=== PATIENT | male | born 1980 | race Caucasian/White ===

== ENCOUNTER 2016-10-23 20:39 | Emergency (ER) | payer MEDICAID, OTHER ==
[~2016-10-23] VITALS: Ht 167.6 cm; Wt 84.0 kg
[2016-10-23 20:41] VITALS: Ht 167.6 cm; Wt 84.0 kg
[2016-10-23] MEDS ORDERED: KETOROLAC 60 MG INJ IM STA (21:15)
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
--- NOTE | 2016-10-23 22:26 | RADRPT ---
PROCEDURE: X-ray left foot CLINICAL INDICATION: Pain in the left foot TECHNIQUE: 3 views left foot COMPARISON: None FINDINGS: No acute fracture dislocation. Plantar and posterior dorsal calcaneal enthesophytes. Soft tissues unremarkable. IMPRESSION: No acute fracture. RPTAT: [facility] Physician Andrea Date Time Electronically viewed and signed by Physician Andrea on 10/23/2016 22:25 RS/
--- NOTE | 2016-10-23 22:27 | RADRPT ---
PROCEDURE: X-ray left ankle CLINICAL INDICATION: Left ankle pain TECHNIQUE: 3 views left ankle COMPARISON: None FINDINGS: No acute fracture or dislocation. Plantar and posterior dorsal calcaneal enthesophytes. Soft tissu es unremarkable. IMPRESSION: No acute fracture. RPTAT: [facility] Physician Andrea Date Time Electronically viewed and signed by Saul Garcia Physician on 10/23/2016 22:26 RS/
[2016-10-23] MEDS ORDERED: TRAM50TA2 PO (22:45)
[2016-10-23] MEDS ORDERED: IBUP-1542 PO (22:45)
== END 2016-10-23 23:16 | disposition home or self-care (01) ==
LOC: FTE 20:39
DX: M25.572 Pain in left ankle and joints of left foot (principal); F17.210 Nicotine dependence, cigarettes, uncomplicated
CPT/HCPCS: 73610; 73630; J1885; 96372

== ENCOUNTER 2017-01-17 23:01 | Inpatient (IN) | payer MEDICAID ==
[~2017-01-17] VITALS: Ht 170.2 cm; Wt 81.2 kg
[~2017-01-17 23:01] MED LIST: IBUP-1542 PO; TRAM50TA2 PO
[2017-01-18] VITALS (15 sets, daily range): BP systolic 106–132; BP diastolic 64–98; PULSE 62–103; RESP 12–27; TEMP 98.5; Ht 170.2 cm; Wt 81.2 kg
--- NOTE | 2017-01-18 01:10 | ERD ---
ER Documentation Chief Complaint Date/Time DATE: 01/18/17 TIME: 01:07 Chief Complaint head and nose lac s/p fall walking down stairs HPI 36-year-old male presents here in emergency department for complaints of left forehead laceration and right nasal fold laceration after falling off stairs today. Patient did not lose consciousness after the injury. Patient did not have any vomiting. Also is complaining of the left shoulder pain throbbing pain 8/10 scale, is worse upon movement, landed on it during the injury. Patient is complaining of pain on the laceration wounds, burning pain 4/10 scale, is worse upon touching the area. Patient's laceration wound bleeding is controlled at this time. Patient did not take any medications for pain. Patient did not have any changes in balance or memory. Patient denies any dizziness. ROS All systems reviewed and are negative except as per history of present illness. Medications Home Meds Active Scripts Tramadol HCl (Tramadol HCl) 50 Mg Tablet, 50 MG PO Q6 Y for SEVERE PAIN LEVEL 7- 10, #20 TAB Prov:HUONG MARINO COOK FROZEN DESSERT 10/23/16 Ibuprofen* (Motrin*) 600 Mg Tab, 600 MG PO Q6H Y for PAIN AND OR ELEVATED TEMP, #30 TAB Prov:HUONG MARINO COOK FROZEN DESSERT 10/23/16 Reported Medications [none] Unknown Strength No Conflict Check 10/23/16 Allergies Allergies: Coded Allergies: No Known Allergy (Unverified , 10/23/16) PMhx/Soc Medical and Surgical Hx: pt denies Medical Hx, pt denies Surgical Hx History of Surgery: No Anesthesia Reaction: No Hx Neurological Disorder: No Hx Respiratory Disorders: No Hx Cardiac Disorders: No Hx Psychiatric Problems: No Hx Miscellaneous Medical Probl: No (DENIES MED AND SURG HX.) Hx Alcohol Use: No Hx Substance Use: Yes (MARIJUANA) Hx Tobacco Use: No Smoking Status: Never smoker FmHx Family History: No coronary disease, No diabetes, No other Physical Exam Vitals Vital Signs Date Time Temp Pulse Resp B/P Pulse Ox O2 Delivery O2 Flow Rate FiO2 01/17/17 23:20 98.5 100 18 129/85 97 Physical Exam GENERAL: The patient is well developed and appropriate for usual state of health, in no apparent distress. CHEST: Clear to auscultation bilaterally. There are no rales, wheezes or rhonchi. HEART: Regular rate and rhythm. No murmurs, clicks, rubs or gallops. No S3 or S4. ABDOMEN: Soft, nontender and nondistended. Good bowel sounds. No rebound or guarding. No gross peritonitis. No gross organomegaly or masses. No Soria sign or McBurney point tenderness. BACK: No midline or flank tenderness. EXTREMITIES: Able to do full range of motion of left shoulder without any or restriction, but with pain. No deformity noted, no crepitus noted. Equal pulses bilaterally. Full range of motion of other joints of the body. Grossly neurovascularly intact. NEURO: Alert and oriented. Cranial nerves 2-12 intact. Motor strength in all 4 extremities with 5/5 strength. Sensation grossly intact. Normal speech and gait. Negative Romberg sign. Negative pronator drift. SKIN: Noted 2.5 cm superficial laceration wound in the left forehead, no galea involvement. Nose laceration in the right nasolabial fold, 1 cm, bleeding is controlled at this time. There is no apparent rash or petechia. The skin is warm and dry. HEMATOLOGIC AND LYMPHATIC: There is no evidence of excessive bruising or lymphedema. No gross cervical, axillary, or inguinal lymphadenopathy. Results 24 hrs Current Medications Medications (Trade) Dose Ordered Sig/Deshawn Route PRN Reason Start Time Stop Time Status Last Admin Dose Admin Lidocaine (Xylocaine 2% (Mdv) 20 ml) 2 ml ONCE ONCE SC 01/18/17 03:00 01/18/17 03:01 DC 01/18/17 02:46 AMENDMENT: 01/18/2017 2:01:38 AM Agapito Garcia MD Addendum: FINDINGS: Depressed fracture in the left frontal region measuring about 5 x 4 mm at the outer table of the calvarium, with about 6 mm depression of the internal fragments. There is no evident hemorrhage in this region, although MRI examination may be more sensitive and specific for detecting subtle hemorrhage given mild streak artifact associated with bone fragments. IMPRESSION: 1. Fracture of the left frontal calvarium with depression of bone fragments measuring about 6 mm. 2. No evident hemorrhage in this region. 3. MRI examination may be of further use. PROCEDURE: CT head, without contrast. CLINICAL INDICATION: Facial and head injury status post fall. TECHNIQUE: Noncontrast CT examination of the head, with axial, sagittal and coronal reformatted images. Automated dose exposure control was employed. CTDI: 45.01 and DLP: 720.23 COMPARISON: None. FINDINGS: No acute hemorrhage. Subarachnoid spaces are substantially preserved and symmetric. Ventricles are unremarkable. No mass effect. Matos-white matter distinction is preserved without evident decreased attenuation to suggest acute or recent infarct. Sinuses and osseous structures are unremarkable. IMPRESSION: No acute process in the head. RPTAT: [facility] Physician Andrea Date Time Electronically viewed and signed by Physician Andrea on 01/18/2017 02:01 RS/ CC: HUONG MARINO NP PROCEDURE: CT facial bones CLINICAL INDICATION: Fall with head and facial injuries. TECHNIQUE: A CT of the facial bones was performed utilizing high-resolution axial images. Sagittal, coronal, and multiplanar reformatted images were made. Additionally, 3-D reformatted images were made. The CTDIvol is 29.48 mGy and the DLP is 557.23 mGy-cm. COMPARISON: None. FINDINGS: Depressed fracture in the left frontal region measuring about 5 x 4 mm at the outer table of the calvarium, with about 6 mm depression of the internal fragments. The orbits, as visualized, appear intact. The overlying soft tissues are grossly unremarkable. The visualized paranasal sinuses are clear. IMPRESSION: Fracture of the left frontal calvarium with depression of bone fragments measuring about 6 mm. RPTAT: [facility] Physician Andrea Date Time Electronically viewed and signed by Physician Andrea on 01/18/2017 02:00 RS/ CC: HUONG MARINO NP PROCEDURE: X-ray left shoulder CLINICAL INDICATION: Left shoulder pain status post injury. TECHNIQUE: 3 views left shoulder COMPARISON: None FINDINGS: No acute fracture or dislocation. Degenerative changes at the acromioclavicular joint with subchondral cystic changes at the distal articular clavicle. Soft tissues unremarkable. IMPRESSION: No acute fracture. RPTAT: [facility] Physician Andrea Date Time Electronically viewed and signed by Physician Andrea on 01/18/2017 01:22 RS/ CC: HUONG MARINO COOK FROZEN DESSERT Procedures/MDM Procedure Note: After obtaining informed consent, the wound was irrigated with 250 ml of normal saline and cleaned with diluted betadine. Using aseptic technique, 3 ml of 1% lidocaine was injected on the subcutaneous tissue of the laceration wound for anesthetic. After the anesthetic, the wound in the right naris area was approximated using 5 interrupted sutures of 6-0 Ethilon. After the procedure, the wound was well approximated. Patient tolerated procedure well. Procedure Note: After obtaining informed consent, the forehead laceration wound was irrigated with 250 ml of normal saline and cleaned with diluted betadine. Using aseptic technique, the wound was approximated using a dermabond and Steri-Strips. After the procedure, the wound was well approximated. Patient tolerated procedure well. Medical Decision Making: Patient's pain is most likely consistent with a laceration was affected in his face, patient also has a skull fracture with frontal lobe contusion, with this, patient is to be admitted to the hospital. No hemorrhage noted. Patient also has left shoulder pain, consistent with a left shoulder contusion, no dislocation or fracture noted. There is no suspicion for neurovascular compromise. Patient has intact sensation and circulation of the affected extremity and distal extremity. There is low suspicion for septic arthritis. Patient does not have any fever. Radiology exams of the shoulder area does not show any fracture or dislocation. I discussed this case with my attending physician, Dr. Mar, will faciliate patient's admission to the hospital for further evaluation and management. Patient is stable at this time. Departure Diagnosis: Primary Impression: Depressed skull fracture Encounter type: initial encounter Fracture type: closed Qualified Code: S02.91XA - Depressed skull fracture, closed, initial encounter Additional Impressions: Facial laceration Encounter type: initial encounter Qualified Code: S01.81XA - Facial laceration, initial encounter Shoulder contusion Encounter type: initial encounter Laterality: left Qualified Code: S40.012A - Contusion of left shoulder, initial encounter Condition: HUONG Gregory NP Jan 18, 2017 01:10
--- NOTE | 2017-01-18 01:22 | RADRPT ---
PROCEDURE: X-ray left shoulder CLINICAL INDICATION: Left shoulder pain status post injury. TECHNIQUE: 3 views left shoulder COMPARISON: None FINDINGS: No acute fracture or dislocation. Degenerative changes at the acromioclavicular joint with subchondr al cystic changes at the distal articular clavicle. Soft tissues unremarkable. IMPRESSION: No acute fracture. RPTAT: [facility] Physician Andrea Date Time Electronically viewed and signed by Physician Andrea on 01/18/2017 01:22 RS/
--- NOTE | 2017-01-18 01:57 | RADRPT ---
AMENDMENT: 01/18/2017 2:01:38 AM Agapito Garcia MD Addendum: FINDINGS: Depressed fracture in the left frontal region measuring about 5 x 4 mm at the outer table of the maritza varium, with about 6 mm depression of the internal fragments. There is no evident hemorrhage in this region, although MRI examination may be more sensitive and sp ecific for detecting subtle hemorrhage given mild streak artifact associated with bone fragments. IMPRESSION: 1. Fracture of the left frontal calvarium with depression of bone fragments measuring about 6 mm. 2. No evident hemorrhage in this region. 3. MRI examination may be of further use. PROCEDURE: CT head, without contrast. CLINICAL INDICATION: Facial and head injury status post fall. TECHNIQUE: Noncontrast CT examination of the head, with axial, sagittal and coronal reformatted im ages. Automated dose exposure control was employed. CTDI: 45.01 and DLP: 720.23 COMPARISON: None. FINDINGS: No acute hemorrhage. Subarachnoid spaces are substantially preserved and symmetric. Ventricles ar e unremarkable. No mass effect. Matos-white matter distinction is preserved without evident decreased attenuation t o suggest acute or recent infarct. Sinuses and osseous structures are unremarkable. IMPRESSION: No acute process in the head. RPTAT: UU Physician Andrea Date Time Electronically viewed and signed by Physician Andrea on 01/18/2017 02:01 MARTI/
--- NOTE | 2017-01-18 02:00 | RADRPT ---
AMENDMENT: 01/18/2017 2:08:58 AM Agapito Garcia MD ADDENDUM: Region of fracture of the inner table of the skull with about 6 mm depression measures about 14 mm i n transverse dimension. Depressed fracture of the skull with fracture at the inner table of the skull and 6 mm depression of posterior fragments and associated details were discussed with the patient's nurse practitioner Gregory mendoza of the [facility] emergency department at the conclusion of this addendum on at 0205 hours by the undersigned interpreting radiologist. [facility] Radiology Report Patient Name: HERON BRYANT Report Date: 18-Jan-2017 02:00.00 Accession No.: [id number] Patient Date: 1980 Report Status: S Referring Physician: KIMBERLY BORJA Reason For Study: facial and head injury s/p fall off stairs [place] [address] Radiology Main Line: [phone] DIAGNOSTIC IMAGING REPORT Patient: ANNETTE SHELBY : 1980 Age: 36 Sex: M MR #: [id number] DOS: 01/18/17 0024 Ordering MD: HUONG MARINO NP Location: [facility] Room/Bed: PROCEDURE: CT facial bones CLINICAL INDICATION: Fall with head and facial injuries. TECHNIQUE: A CT of the facial bones was performed utilizing high-resolution axial images. Sagittal, coronal, and multiplanar reformatted images were made. Additionally, 3-D reformatted images were made. The CTDIvol is 29.48 mGy and the DLP is 557.23 mGy-cm. COMPARISON: None. FINDINGS: Depressed fracture in the left frontal region measuring about 5 x 4 mm at the outer table of the calvarium, with about 6 mm depression of the internal fragments. The orbits, as visualized, appear intact. The overlying soft tissues are grossly unremarkable. The visualized paranasal sinuses are clear. IMPRESSION: Fracture of the left frontal calvarium with depression of bone fragments measuring about 6 mm. RPTAT: UU R Radha, Physician Date Time Electronically viewed and signed by Saul Garcia, Physician on 01/18/2017 02:00 RS/ CC: HUONG MARINO. P[employer] Saul Garcia, Physician Date Time Electronically viewed and signed by Saul Garcia Physician on 01/18/2017 02:08 RS/
[2017-01-18] MEDS ORDERED: LIDOCAINE 2% (MDV) 20 ML INJ SC ONE (03:00)
--- NOTE | 2017-01-18 05:06 | RADRPT ---
PROCEDURE: MR Brain without contrast. CLINICAL INDICATION: Head trauma with left frontal skull fracture. Assess for intracranial hemorr manasa. TECHNIQUE: Sagittal and axial T1 weighted, axial T2 weighted, axial and coronal GRE, axial diffusi on weighted with ADC mapping, and axial FLAIR imaging without contrast. COMPARISON: CT from the same day FINDINGS: Small left frontal scalp hematoma is again seen. The depressed left frontal calvarial fracture is n oted. A small amount of associated extra-axial blood is seen but no subjacent cortical contusion is appreciated. There is slight effacement of the left frontal lobe cortex. The overall area of bony fragment and associated blood measures 2 cm transverse by 0.5 cm AP. No other area of extra-axial blood is appreciated. No area of intraparenchymal hemorrhage is seen. No midline shift is seen. T he globes appear symmetric and intact. The ventricles are normal in size and configuration. Grossl y patent intracranial flow voids. The visualized paranasal sinuses are grossly clear. IMPRESSION: Left frontal scalp hematoma with depressed left frontal calvarial fragment and minimal associated ex tra-axial blood. Mild effacement of the subjacent left frontal lobe cortex without evidence of danyell ical contusion or white matter edema. Otherwise unremarkable study. RPTAT: [facility]BE Physician Farideh Date Time Electronically viewed and signed by Toshia Walters Physician on 01/18/2017 05:05 SWEETIE/
--- NOTE | 2017-01-18 05:42 | EN ---
Date/Time of Note Date/Time of Note DATE: 01/18/17 TIME: 05:[address] Wilson neurosurgery made aware JUJU DOWELL Jan 18, 2017 05:41
--- NOTE | 2017-01-18 06:07 | RADRPT ---
PROCEDURE: CHEST - 1 VIEW CLINICAL INDICATION: 36-year-old male with chest/abdominal pain. TECHNIQUE: A single frontal AP portable view of the chest was performed. The images were reviewed on a PACS workstation. COMPARISON: None. FINDINGS: The cardiomediastinal silhouette has a normal appearance. There is a shallow inspiration with elevat ion right hemidiaphragm. There is mild right basilar subsegmental atelectasis. There is no evidence for an infiltrate. There is no evidence for congestive heart failure. There is no evidence for pne umothorax. The osseous structures are intact. IMPRESSION: Shallow inspiration with elevated right hemidiaphragm and mild right basilar subsegmental atelectasi s. .Jama Harry MD, MD Date Time Electronically viewed and signed by .Jama Harry MD, on 01/18/2017 06:07 .[place]/
[2017-01-18 06:09] LABS: ADD SCAN DIFF NO; BASOPHILS % 0.2 % (0.0-2.0); EOSINOPHILS # 0.1 10^3/ul (0.0-0.5); EOSINOPHILS % 1.6 % (0.0-7.0); HEMATOCRIT 39.1 % (42.0-52.0); HEMOGLOBIN 12.7 g/dl (14.0-18.0); LYMPHOCYTES # 1.6 10^3/ul (0.8-2.9); LYMPHOCYTES % 24.6 % (15.0-51.0); MEAN CORPUSCULAR HEMOGLOBIN 27.7 pg (29.0-33.0); MEAN CORPUSCULAR HGB CONC 32.5 g/dl (32.0-37.0); MEAN CORPUSCULAR VOLUME 85.4 fl (82.0-101.0); MEAN PLATELET VOLUME 10.3 fl (7.4-10.4); MONOCYTE # 0.5 10^3/ul (0.3-0.9); MONOCYTES % 8.4 % (0.0-11.0); NEUTROPHIL # 4.1 10^3/ul (1.6-7.5); NEUTROPHILS % 64.9 % (39.0-77.0); PLATELET COUNT 238 10^3/UL (140-415); RED BLOOD COUNT 4.58 10^6/ul (4.70-6.10); RED CELL DISTRIBUTION WIDTH 13.7 % (11.5-14.5); WHITE BLOOD COUNT 6.3 10^3/ul (4.8-10.8)
--- NOTE | 2017-01-18 06:12 | QN ---
Documentation Comment Traumatic left frontal depressed skull fracture; fracture is minimally depressed and not associated with any subjacent contusion. Skin is intact over the fracture fragment. There is no indication for neurosurgical intervention to raise this fracture fragment as it is not comminuted and the wound is not an open fracture. The patient should however be observed in ICU for repeat CT in 24 hours to rule out a delayed contusion or hemorrhage. MATTHEW HINSON MD Jan 18, 2017 06:12
[2017-01-18] MEDS ORDERED: HYDROmorphONE 1 MG/ML SYG IV STA (06:52)
[2017-01-18] MEDS ORDERED: ONDANSETRON 4 MG INJ IV STA (06:52)
[2017-01-18 07:15] LABS: INR 1.07; PROTIME 13.9 Sec (12.2-14.2); PT RATIO 1.1
[2017-01-18 07:16] LABS: PARTIAL THROMBOPLASTIN TIME 30.8 Sec (25.0-35.0)
[2017-01-18 07:17] LABS: ALBUMIN 4.5 g/dl (3.3-4.9); ALBUMIN/GLOBULIN RATIO 1.21; BILIRUBIN,INDIRECT 0.8 mg/dl (0-1.1); BILIRUBIN,TOTAL 0.8 mg/dl (0.2-1.3); CALCIUM 9.4 mg/dl (8.4-10.2); CREATININE 0.8 mg/dl (0.61-1.24); POTASSIUM 3.2 mmol/L (3.5-5.1); TOTAL PROTEIN 8.2 g/dl (6.1-8.1)
[2017-01-18] MEDS ORDERED: ONDANSETRON 4 MG INJ IV PRN (07:30)
[2017-01-18] MEDS: SOD CHLORIDE 0.9% 1,000 ML IV SCH (10:20)
--- NOTE | 2017-01-18 14:33 | HP ---
Date/Time of Note Date/Time of Note DATE: 01/18/17 TIME: 14:26 Assessment/Plan VTE Prophylaxis VTE Prophylaxis Intervention: SCD's Lines/Catheters IV [facility]ter Type (from [facility] Peripheral IV Urinary Cath still in place: No Assessment/Plan Assessment/Plan 36 yo M s/p accidental fall down the stairs with 1. Mild depressed skull fracture Per Neurosurgery: Traumatic left frontal depressed skull fracture; fracture is minimally depressed and not associated with any subjacent contusion. Skin is intact over the fracture fragment. There is no indication for neurosurgical intervention to raise this fracture fragment as it is not comminuted and the wound is not an open fracture. The patient should however be observed in ICU for repeat CT in 24 hours to rule out a delayed contusion or hemorrhage. HPI/ROS Admit Date/Time Admit Date/Time Jan 18, 2017 at 07:23 Hx of Present Illness 36-year-old male presents here in emergency department for complaints of left forehead laceration and right nasal fold laceration after falling off stairs today. Patient did not lose consciousness after the injury. Patient did not have any vomiting. Also is complaining of the left shoulder pain throbbing pain 8/10 scale, is worse upon movement, landed on it during the injury. Patient is complaining of pain on the laceration wounds, burning pain 4/10 scale, is worse upon touching the area. Patient's laceration wound bleeding is controlled at this time. Patient did not take any medications for pain. Patient did not have any changes in balance or memory. Patient denies any dizziness. ROS 12 point review if systems was done and pertinent findings are as noted. PMH/Family/Social Social History Smoking Status: Heavy tobacco smoker Exam/Review of Systems Vital Signs Vitals Vital Signs Date Time Temp Pulse Resp B/P Pulse Ox O2 Delivery O2 Flow Rate FiO2 01/18/17 14:00 87 20 119/83 100 Room Air 01/18/17 11:30 98.1 Exam Constitutional: alert, oriented, No distress Head: other (Noted 2.5 cm superficial laceration wound in the left forehead,) Eyes: EOMI, PERRL, nl conjunctiva ENMT: mucosa pink and moist Neck: supple Respiratory: clear to auscultation, normal air movement Cardiovascular: nl pulses, regular rate and rhythm Gastrointestinal: bowel sounds, non-tender, soft Extremities: No edema Neurological: nl mental status, nl speech, nl strength, No confused, No focal weakness Labs Result Diagram: 01/18/17 0541 01/18/17 0636 Medications Medications Current Medications Sodium Chloride (NS) 1,000 ml @ 70 mls/hr [id number] IV Last administered on 01/18t 10:20; Admin Dose 70 MLS/HR; Start 01/18/17 at 11:00 Ondansetron HCl (Zofran Inj) 4 mg Q6H PRN IV NAUSEA AND/OR VOMITING; Start 05/27 at 07:30 Acetaminophen (Tylenol Liquid) 650 mg Q6H PRN PO PAIN LEVEL 1-3 OR FEVER; Start 01/18/17 at 07:30 Pantoprazole (Protonix Iv) 40 mg DAILY@06 IV ; Start 01/19/17 at 06:00 Procedures Procedures Laboratory Tests Test 01/18/17 05:41 01/18/17 06:36 White Blood Count 6.310^3/ul Red Blood Count 4.5810^6/ul Hemoglobin 12.7g/dl Hematocrit 39.1% Mean Corpuscular Volume 85.4fl Mean Corpuscular Hemoglobin 27.7pg Mean Corpuscular Hemoglobin Concent 32.5g/dl Red Cell Distribution Width 13.7% Platelet Count 22881^3/UL Mean Platelet Volume 10.3fl Neutrophils % 64.9% Lymphocytes % 24.6% Monocytes % 8.4% Eosinophils % 1.6% Basophils % 0.2% Nucleated Red Blood Cells % 0.0/100WBC Neutrophils # 4.110^3/ul Lymphocytes # 1.610^3/ul Monocytes # 0.510^3/ul Eosinophils # 0.110^3/ul Basophils # 0.010^3/ul Nucleated Red Blood Cells # 0.010^3/ul Prothrombin Time 13.9Sec Prothrombin Time Ratio 1.1 INR International Normalized Ratio 1.07 Activated Partial Thromboplast Time 30.8Sec Sodium Level 138mmol/L Potassium Level 3.2mmol/L Chloride Level 102mmol/L Carbon Dioxide Level 31mmol/L Anion Gap 8 Blood Urea Nitrogen 13mg/dl Creatinine 0.80mg/dl Glucose Level 89mg/dl Calcium Level 9.4mg/dl Total Bilirubin 0.8mg/dl Direct Bilirubin 0.00mg/dl Indirect Bilirubin 0.8mg/dl Aspartate Amino Transf (AST/SGOT) 26IU/L Alanine Aminotransferase (ALT/SGPT) 38IU/L Alkaline Phosphatase 95IU/L Total Protein 8.2g/dl Albumin 4.5g/dl Globulin 3.70g/dl Albumin/Globulin Ratio 1.21 Lipase 32U/L Current Medications Medications (Trade) Dose Ordered Sig/Deshawn Route PRN Reason Start Time Stop Time Status Last Admin Dose Admin Lidocaine (Xylocaine 2% (Mdv) 20 ml) 2 ml ONCE ONCE SC 01/18/17 03:00 01/18/17 03:01 DC 01/18/17 02:46 2 ML Hydromorphone HCl (Dilaudid) 1 mg ONCE STAT IV 01/18/17 06:52 01/18/17 06:53 DC 01/18/17 06:58 1 MG Ondansetron HCl 4 mg 4 mg ONCE STAT IV 01/18/17 06:52 01/18/17 06:53 DC 01/18/17 06:58 4 MG Sodium Chloride (NS) 1,000 ml @ 70 mls/hr [id number] IV 01/18/17 11:00 01/18/17 10:20 70 MLS/HR Ondansetron HCl (Zofran Inj) 4 mg Q6H PRN IV NAUSEA AND/OR VOMITING 01/18/17 07:30 Acetaminophen (Tylenol Liquid) 650 mg Q6H PRN PO PAIN LEVEL 1-3 OR FEVER 01/18/17 07:30 Pantoprazole (Protonix Iv) 40 mg DAILY@06 IV 01/19/17 06:00 PROCEDURE: CHEST - 1 VIEW CLINICAL INDICATION: 36-year-old male with chest/abdominal pain. TECHNIQUE: A single frontal AP portable view of the chest was performed. The images were reviewed on a PACS workstation. COMPARISON: None. FINDINGS: The cardiomediastinal silhouette has a normal appearance. There is a shallow inspiration with elevation right hemidiaphragm. There is mild right basilar subsegmental atelectasis. There is no evidence for an infiltrate. There is no evidence for congestive heart failure. There is no evidence for pneumothorax. The osseous structures are intact. IMPRESSION: Shallow inspiration with elevated right hemidiaphragm and mild right basilar subsegmental atelectasis. .Jama Harry MD, Date Time Electronically viewed and signed by .Jama Harry MD, MD on 01/18/2017 06:07 .M/ CC: JUJU DOWELL PROCEDURE: MR Brain without contrast. CLINICAL INDICATION: Head trauma with left frontal skull fracture. Assess for intracranial hemorrhage. TECHNIQUE: Sagittal and axial T1 weighted, axial T2 weighted, axial and coronal GRE, axial diffusion weighted with ADC mapping, and axial FLAIR imaging without contrast. COMPARISON: CT from the same day FINDINGS: Small left frontal scalp hematoma is again seen. The depressed left frontal calvarial fracture is noted. A small amount of associated extra-axial blood is seen but no subjacent cortical contusion is appreciated. There is slight effacement of the left frontal lobe cortex. The overall area of bony fragment and associated blood measures 2 cm transverse by 0.5 cm AP. No other area of extra-axial blood is appreciated. No area of intraparenchymal hemorrhage is seen. No midline shift is seen. The globes appear symmetric and intact. The ventricles are normal in size and configuration. Grossly patent intracranial flow voids. The visualized paranasal sinuses are grossly clear. IMPRESSION: Left frontal scalp hematoma with depressed left frontal calvarial fragment and minimal associated extra-axial blood. Mild effacement of the subjacent left frontal lobe cortex without evidence of cortical contusion or white matter edema. Otherwise unremarkable study. RPTAT: [facility] Toshia Walters, Physician Date Time Electronically viewed and signed by Toshia Walters Physician on 01/18/2017 05 :05 LE/ CC: SHANA MARINO TOOL SETTER APPRENTICE PROCEDURE: CT head, without contrast. CLINICAL INDICATION: Facial and head injury status post fall. TECHNIQUE: Noncontrast CT examination of the head, with axial, sagittal and coronal reformatted images. Automated dose exposure control was employed. CTDI: 45.01 and DLP: 720.23 COMPARISON: None. FINDINGS: Depressed fracture in the left frontal region measuring about 5 x 4 mm at the outer table of the calvarium, with about 6 mm depression of the internal fragments. There is no evident hemorrhage in this region, although MRI examination may be more sensitive and specific for detecting subtle hemorrhage given mild streak artifact associated with bone fragments. IMPRESSION: 1. Fracture of the left frontal calvarium with depression of bone fragments measuring about 6 mm. 2. No evident hemorrhage in this region. 3. MRI examination may be of further use. [facility] Radiology Report Patient Name: HERON BRYANT Report Date: 18-Jan-2017 02:00.00 Accession No.: [id number] Patient Date: 1980 Report Status: S Referring Physician: KIMBERLY BORJA Reason For Study: facial and head injury s/p fall off stairs [place] [id number] Radiology Main Line: [phone] DIAGNOSTIC IMAGING REPORT Patient: ANNETTE SHELBY : 1980 Age: 36 Sex: M MR #: [id number] DOS: 01/18/17 0024 Ordering MD: SHANA MARINO NP Location: [facility] Room/Bed: PROCEDURE: CT facial bones CLINICAL INDICATION: Fall with head and facial injuries. TECHNIQUE: A CT of the facial bones was performed utilizing high-resolution axial images. Sagittal, coronal, and multiplanar reformatted images were made. Additionally, 3 -D reformatted images were made. The CTDIvol is 29.48 mGy and the DLP is 557.23 mGy-cm. COMPARISON: None. FINDINGS: Depressed fracture in the left frontal region measuring about 5 x 4 mm at the outer table of the calvarium, with about 6 mm depression of the internal fragments. The orbits, as visualized, appear intact. The overlying soft tissues are grossly unremarkable. The visualized paranasal sinuses are clear. IMPRESSION: Fracture of the left frontal calvarium with depression of bone fragments measuring about 6 mm. RPTAT: [facility] Physician Andrea Date Time Electronically viewed and signed by Saul Garcia Physician on 01/18/2017 02: 2:08:58 AM Agapito Garcia MD ADDENDUM: Region of fracture of the inner table of the skull with about 6 mm depression measures about 14 mm in transverse dimension. Depressed fracture of the skull with fracture at the inner table of the skull and 6 mm depression of posterior fragments and associated details were discussed with the patient's nurse practitioner Shana of the [facility] emergency department at the conclusion of this addendum on 01/18/2017 at 0205 hours by the undersigned interpreting radiologist. CC: SHANA MARINO NP PROCEDURE: X-ray left shoulder CLINICAL INDICATION: Left shoulder pain status post injury. TECHNIQUE: 3 views left shoulder COMPARISON: None FINDINGS: No acute fracture or dislocation. Degenerative changes at the acromioclavicular joint with subchondral cystic changes at the distal articular clavicle. Soft tissues unremarkable. IMPRESSION: No acute fracture. RPTAT: [facility] Physician Andrea Date Time Electronically viewed and signed by Physician Andrea on 01/18/2017 01:22 RS/ CC: SHANA MARINO NP, BOLATITO M. Jul 11, 2017 14:33
[2017-01-18] MEDS: ACETAMINOPHEN 650MG/20.3ML CUP PO PRN ×2 (14:36→20:33)
[2017-01-18] MEDS: POTASSIUM CHLORIDE (SR) 20 MEQ TAB PO SCH ×2 (15:17→20:33)
[2017-01-18] MEDS: NICOTINE (21 MG/24 HR) PATCH TRANSDERM SCH (16:08)
[2017-01-18] MEDS: FAMOTIDINE 20 MG TAB PO SCH (20:33)
[2017-01-18] MEDS: HYDROCODONE/APAP (5/325) TAB PO PRN (22:13)
[2017-01-19] VITALS (19 sets, daily range): BP systolic 96–121; BP diastolic 62–92; PULSE 68–93; RESP 11–18
[2017-01-19] MEDS: SOD CHLORIDE 0.9% 1,000 ML IV SCH ×2 (00:46→14:59)
[2017-01-19 05:25] LABS: ADD SCAN DIFF NO
[2017-01-19 05:30] LABS: BASOPHILS % 0.4 % (0.0-2.0); EOSINOPHILS # 0.1 10^3/ul (0.0-0.5); EOSINOPHILS % 2.2 % (0.0-7.0); HEMATOCRIT 37.7 % (42.0-52.0); HEMOGLOBIN 12.4 g/dl (14.0-18.0); LYMPHOCYTES # 1.4 10^3/ul (0.8-2.9); LYMPHOCYTES % 31.8 % (15.0-51.0); MEAN CORPUSCULAR HEMOGLOBIN 28.8 pg (29.0-33.0); MEAN CORPUSCULAR HGB CONC 32.9 g/dl (32.0-37.0); MEAN CORPUSCULAR VOLUME 87.7 fl (82.0-101.0); MONOCYTE # 0.3 10^3/ul (0.3-0.9); MONOCYTES % 7.6 % (0.0-11.0); NEUTROPHIL # 2.6 10^3/ul (1.6-7.5); NEUTROPHILS % 57.8 % (39.0-77.0); PLATELET COUNT 198 10^3/UL (140-415); RED CELL DISTRIBUTION WIDTH 13.4 % (11.5-14.5); WHITE BLOOD COUNT 4.5 10^3/ul (4.8-10.8)
[2017-01-19 05:54] LABS: ALBUMIN 4.1 g/dl (3.3-4.9); ALBUMIN/GLOBULIN RATIO 1.41; BILIRUBIN,INDIRECT 0.5 mg/dl (0-1.1); BILIRUBIN,TOTAL 0.5 mg/dl (0.2-1.3); CALCIUM 8.6 mg/dl (8.4-10.2); CREATININE 0.86 mg/dl (0.61-1.24); POTASSIUM 4.2 mmol/L (3.5-5.1)
[2017-01-19] MEDS ORDERED: PANTOPRAZOLE 40 MG INJ IV SCH (06:00)
[2017-01-19] MEDS: NICOTINE (21 MG/24 HR) PATCH TRANSDERM SCH (08:00)
[2017-01-19] MEDS: FAMOTIDINE 20 MG TAB PO SCH ×2 (08:00→22:09)
--- NOTE | 2017-01-19 08:30 | RADRPT ---
PROCEDURE: CT Brain without contrast. CLINICAL INDICATION: Follow-up depressed skull fracture. TECHNIQUE: A CT of the brain was performed on a multidetector CT scanner utilizing axial sections from the skull base through the vertex without contrast. Images were reviewed on a high-resolution Gamar workstation. Exam CTDI = 43.18 mGy and the DLP = 854.65 mGy-cm. One or more of the following dose reduction techniques were used: Automated exposure control Adjustment of the mA and/or kV according to patient size. Use of iterative reconstruction technique. COMPARISON: CT head 01/18/2017 and brain MRI 01/18/2017. FINDINGS: Redemonstrated is a depressed fracture of the left frontal bone with overlying scalp swelling. Ther e has been interval resolution of tiny pneumocephalus. Previously described thin extra-axial hemorrh age adjacent to the fracture fragment is not well visualized on the CT. There is no evidence of hem orrhagic contusion in the left frontal lobe. There is no evidence of intracranial hemorrhage, mass e ffect or midline shift. No abnormal intra-axial or extra-axial fluid collections are seen. The den sity of the brain is normal and the peace/white matter differentiation is well preserved. The osseo us structures are unremarkable. Paranasal sinuses are clear. IMPRESSION: 1. Stable appearance of depressed fracture of the left frontal bone with overlying scalp swelling. Tiny pneumocephalus is no longer visualized. No hemorrhagic contusion adjacent to depressed skull fracture. RPTAT: BB .Michael Mo MD, MD Date Time Electronically viewed and signed by .Michael Mo MD, MD on 01/19/2017 08:30 .O/
--- NOTE | 2017-01-19 09:11 | DS ---
Date/Time of Note Date/Time of Note DATE: 01/19/17 TIME: 09:10 Discharge Summary Admission/Discharge Info Admit Date/Time Jan 18, 2017 at 07:23 Discharge Date/Time January 19, 2017 Discharge Diagnosis 36-year-old male status post mechanical fall down stairs with depressed skull fracture without brain involvement Patient Condition: Stable Hx of Present Illness 36-year-old male presents here in emergency department for complaints of left forehead laceration and right nasal fold laceration after falling off stairs today. Patient did not lose consciousness after the injury. Patient did not have any vomiting. Also is complaining of the left shoulder pain throbbing pain 8/10 scale, is worse upon movement, landed on it during the injury. Patient is complaining of pain on the laceration wounds, burning pain 4/10 scale, is worse upon touching the area. Patient's laceration wound bleeding is controlled at this time. Patient did not take any medications for pain. Patient did not have any changes in balance or memory. Patient denies any dizziness. . Hospital Course Full details are available in the chart for review and summary this patient had presented after reportedly falling downstairs and sustaining head laceration and forehead pain. He also had a laceration on the right side of his nose. Patient was found to have a depressed skull fracture without bridging injury. He was observed in the intensive care unit overnight and a repeat CT scan ordered for this morning. This has been reviewed with neurosurgery and improved from initial CT on arrival. He has been cleared for discharge for continued rest and pain control at home. Patient has been ambulant, he denies headaches or pain at this time. He is also been able to tolerate a diet, he has no focal neurologic deficits, no numbness, no extremity weakness, no vision changes. Home Meds Active Scripts Tramadol HCl (Tramadol HCl) 50 Mg Tablet, 50 MG PO Q6 Y for SEVERE PAIN LEVEL 7- 10, #20 TAB Prov:HUONG MARINO NP 10/23/16 Ibuprofen* (Motrin*) 600 Mg Tab, 600 MG PO Q6H Y for PAIN AND OR ELEVATED TEMP, #30 TAB Prov:HUONG MARINO NP 10/23/16 Discontinued Reported Medications [none] Unknown Strength No Conflict Check 10/23/16 Follow-up Plan Patient is to follow-up with his primary care physician within a week, to ensure continued resolution of symptoms. He is also to come back to the emergency room if he develops persistent headache, new neurologic findings like vision changes, extremity weakness, loss of bowel or bladder control. This has been communicated to him and his family. Primary Care Provider Care Physician No Primary Time spent on discharge: > 30 minutes Pending Labs Laboratory Tests Test 01/19/17 04:58 White Blood Count 4.510^3/ul (4.8-10.8) Red Blood Count 4.3010^6/ul (4.70-6.10) Hemoglobin 12.4g/dl (14.0-18.0) Hematocrit 37.7% (42.0-52.0) Mean Corpuscular Volume 87.7fl (82.0-101.0) Mean Corpuscular Hemoglobin 28.8pg (29.0-33.0) Mean Corpuscular Hemoglobin Concent 32.9g/dl (32.0-37.0) Red Cell Distribution Width 13.4% (11.5-14.5) Platelet Count 30616^3/UL (140-415) Mean Platelet Volume 10.0fl (7.4-10.4) Neutrophils % 57.8% (39.0-77.0) Lymphocytes % 31.8% (15.0-51.0) Monocytes % 7.6% (0.0-11.0) Eosinophils % 2.2% (0.0-7.0) Basophils % 0.4% (0.0-2.0) Nucleated Red Blood Cells % 0.0/100WBC (0.0-0.0) Neutrophils # 2.610^3/ul (1.6-7.5) Lymphocytes # 1.410^3/ul (0.8-2.9) Monocytes # 0.310^3/ul (0.3-0.9) Eosinophils # 0.110^3/ul (0.0-0.5) Basophils # 0.010^3/ul (0.0-0.1) Nucleated Red Blood Cells # 0.010^3/ul (0.0-0.0) Sodium Level 140mmol/L (135-144) Potassium Level 4.2mmol/L (3.5-5.1) Chloride Level 107mmol/L (97-110) Carbon Dioxide Level 29mmol/L (21-31) Anion Gap 8 (8-16) Blood Urea Nitrogen 14mg/dl (7-20) Creatinine 0.86mg/dl (0.61-1.24) Glucose Level 83mg/dl (70-220) Calcium Level 8.6mg/dl (8.4-10.2) Total Bilirubin 0.5mg/dl (0.2-1.3) Direct Bilirubin 0.00mg/dl (0.00-0.20) Indirect Bilirubin 0.5mg/dl (0-1.1) Aspartate Amino Transf (AST/SGOT) 22IU/L (15-46) Alanine Aminotransferase (ALT/SGPT) 37IU/L (13-69) Alkaline Phosphatase 81IU/L (42-121) Total Protein 7.0g/dl (6.1-8.1) Albumin 4.1g/dl (3.3-4.9) Globulin 2.90g/dl (1.3-3.2) Albumin/Globulin Ratio 1.41 Microbiology Date/Time Source Procedure Growth Status 01/18/17 11:10 Nares MRSA Screen - Preliminary Screening in process Resulted BEN ANDRADE Jan 19, 2017 09:10
[2017-01-20 03:00] VITALS: BP 100/61; PULSE 66; RESP 16
[2017-01-20] MEDS: HYDROCODONE/APAP (5/325) TAB PO PRN ×2 (04:14→10:03)
[2017-01-20] MEDS: SOD CHLORIDE 0.9% 1,000 ML IV SCH (04:17)
[2017-01-20 07:41] VITALS: BP 96/63; RESP 18
[2017-01-20] MEDS: FAMOTIDINE 20 MG TAB PO SCH (08:49)
[2017-01-20] MEDS: NICOTINE (21 MG/24 HR) PATCH TRANSDERM SCH (08:50)
--- NOTE | 2017-01-20 11:02 | DS ---
Date/Time of Note Date/Time of Note DATE: 01/20/17 TIME: 11:01 Discharge Summary Admission/Discharge Info Admit Date/Time Jan 18, 2017 at 07:23 Discharge Date/Time 01/20/17 Discharge Diagnosis * S/p fall * depressed skull fracture * Forehead and R nasal laceration Patient Condition: Stable Consults * Neurosurgery : Dr Vee . Procedures PROCEDURE: MR Brain without contrast. CLINICAL INDICATION: Head trauma with left frontal skull fracture. Assess for intracranial hemorrhage. TECHNIQUE: Sagittal and axial T1 weighted, axial T2 weighted, axial and coronal GRE, axial diffusion weighted with ADC mapping, and axial FLAIR imaging without contrast. COMPARISON: CT from the same day FINDINGS: Small left frontal scalp hematoma is again seen. The depressed left frontal calvarial fracture is noted. A small amount of associated extra-axial blood is seen but no subjacent cortical contusion is appreciated. There is slight effacement of the left frontal lobe cortex. The overall area of bony fragment and associated blood measures 2 cm transverse by 0.5 cm AP. No other area of extra-axial blood is appreciated. No area of intraparenchymal hemorrhage is seen. No midline shift is seen. The globes appear symmetric and intact. The ventricles are normal in size and configuration. Grossly patent intracranial flow voids. The visualized paranasal sinuses are grossly clear. IMPRESSION: Left frontal scalp hematoma with depressed left frontal calvarial fragment and minimal associated extra-axial blood. Mild effacement of the subjacent left frontal lobe cortex without evidence of cortical contusion or white matter edema. Otherwise unremarkable study. RPTAT: [facility] Physician Farideh Date Time Electronically viewed and signed by Toshia Walters Physician on 01/18/2017 05 :05 . Hx of Present Illness 36-year-old male presents here in emergency department for complaints of left forehead laceration and right nasal fold laceration after falling off stairs today. Patient did not lose consciousness after the injury. Patient did not have any vomiting. Also is complaining of the left shoulder pain throbbing pain 8/10 scale, is worse upon movement, landed on it during the injury. Patient is complaining of pain on the laceration wounds, burning pain 4/10 scale, is worse upon touching the area. Patient's laceration wound bleeding is controlled at this time. Patient did not take any medications for pain. Patient did not have any changes in balance or memory. Patient denies any dizziness. Hospital Course Full details are available in the chart for review and summary this patient had presented after reportedly falling downstairs and sustaining a head laceration on his forehead . He also had a laceration on the right side of his nose that was repaired in the ER. Patient was found to have a depressed skull fracture without brain injury. He was observed in the intensive care unit overnight and a repeat CT scan ordered and reviewed after 24hours of observation and it showed no new abnormalities. He was kept for an extra day because he was quite somnolent but at this time he is more awake and feeling much better. he is now anxious for discharge. His physical exam remains benign save for forehead lacerations covered in steristrips and R nasal laceration repaired with sutures. He will be discharged today in stable condition. . Home Meds Active Scripts Tramadol HCl (Tramadol HCl) 50 Mg Tablet, 50 MG PO Q6 Y for SEVERE PAIN LEVEL 7- 10, #20 TAB Prov:HUONG MARINO VP TRAINING 10/23/16 Ibuprofen* (Motrin*) 600 Mg Tab, 600 MG PO Q6H Y for PAIN AND OR ELEVATED TEMP, #30 TAB Prov:HUONG MARINO VP TRAINING 10/23/16 Discontinued Reported Medications [none] Unknown Strength No Conflict Check 10/23/16 Follow-up Plan * Patient is to return in 4 days for removal of sutures in ER. Primary Care Provider Care Physician No Primary Time spent on discharge: < 30 minutes BEN ANDRADE Jan 20, 2017 11:01
[2017-01-20 13:32] VITALS: BP 120/77; RESP 20
== END 2017-01-20 15:40 | disposition home or self-care (01) | DRG 87 ==
LOC: FTE 23:01 → ICU 01-18 07:23 → MS2 01-19 15:40
PROVIDERS: ADMIT Family Medicine; ATTEND Family Medicine
DX: S02.0XXA Fracture of vault of skull, initial encounter for closed fracture (principal); S01.21XA Laceration without foreign body of nose, initial encounter; S40.012A Contusion of left shoulder, initial encounter; R40.0 Somnolence; S01.81XA Laceration without foreign body of other part of head, initial encounter; S02.91XA Unspecified fracture of skull, initial encounter for closed fracture; W10.9XXA Fall (on) (from) unspecified stairs and steps, initial encounter
CPT/HCPCS: 36415; 70450; 70486; 70551; 71010; 73030; 80053; 83690; 85025; 85610; 85730; 87081; 96374; 96375; J1170; J2405; J7030